=== PATIENT | female | born 1990 | race American Indian/Alaskan Native ===

== ENCOUNTER 2019-11-03 20:39 | Inpatient (IN) | payer MEDICAID ==
[2019-11-05 09:23] LABS: Basophils % (Auto) 0.1 % (0.0-1.8); Hematocrit 30.5 % (30.3-42.9); Lymphocytes # (Auto) 0.7 K/mm3 (1.2-5.4); Lymphocytes % (Auto) 7.9 % (13.4-35.0); Mean Corpuscular HGB Conc 33 % (30-34); Mean Corpuscular Volume 84 fl (79-97); Monocytes # (Auto) 0.4 K/mm3 (0.0-0.8); Monocytes % (Auto) 4.4 % (0.0-7.3); Platelet Count 215 K/mm3 (140-440); Red Blood Count 3.65 M/mm3 (3.65-5.03); Red Cell Distribution Width 14.4 % (13.2-15.2)
[2019-11-05 09:47] LABS: BUN/Creatinine Ratio 5; Blood Urea Nitrogen 2 mg/dL (7-17); Calcium 7.6 mg/dL (8.4-10.2); Hemolysis Index 0
[2019-11-07 14:00] LABS: Hematocrit 23.7 % (30.3-42.9); Hemoglobin 7.8 gm/dl (10.1-14.3)
[2019-11-08 00:36] LABS: Hematocrit 22.8 % (30.3-42.9); Hemoglobin 7.3 gm/dl (10.1-14.3)
[2019-11-09 11:44] VITALS: BP 127/65
== END 2019-11-09 13:00 | disposition home or self-care (01) | DRG 765 ==
LOC: TRG 20:39 → APU 20:42 → TRG 21:35 → OBSVTOIN 21:35 → LD 21:35 → OB 11-07 10:06
PROVIDERS: ADMIT Obstetrics & Gynecology; ATTEND Obstetrics & Gynecology
PROC: 10D00Z1 Extraction of Products of Conception, Low, Open Approach (ICD-10-PCS; principal; 2019-11-07)
PROC: 0UB70ZZ Excision of Bilateral Fallopian Tubes, Open Approach (ICD-10-PCS; 2019-11-07)
PROC: 3E0234Z Introduction of Serum, Toxoid and Vaccine into Muscle, Percutaneous Approach (ICD-10-PCS; 2019-11-08)
PROC: 3E0134Z Introduction of Serum, Toxoid and Vaccine into Subcutaneous Tissue, Percutaneous Approach (ICD-10-PCS; 2019-11-08)
DX: O60.14X0 Preterm labor third trimester with preterm delivery third trimester, not applicable or unspecified (principal); D62 Acute posthemorrhagic anemia; O30.043 Twin pregnancy, dichorionic/diamniotic, third trimester; O32.1XX1 Maternal care for breech presentation, fetus 1; O99.214 Obesity complicating childbirth; E66.9 Obesity, unspecified; Z3A.32 32 weeks gestation of pregnancy; Z37.2 Twins, both liveborn; Z23 Encounter for immunization; O32.1XX2 Maternal care for breech presentation, fetus 2; Z30.2 Encounter for sterilization; O99.013 Anemia complicating pregnancy, third trimester
CPT/HCPCS: 36415; 76815; 80048; 83735; 85014; 85018; 85025; 86850; 86900; 86901; 88302; 88307; G0378; J0595; J0690; J0702; J1885; J2270; J2405; J2590; J2765; J3475; J3490; J7120; J7121